=== PATIENT | female | born 1950 | race Caucasian/White ===

== ENCOUNTER 2024-10-22 19:44 | Emergency (ER) | payer MEDICARE, MEDICAID ==
[~2024-10-22] VITALS: Ht 154.9 cm; Wt 70.0 kg
[2024-10-22 20:12] VITALS: O2SAT 100
[2024-10-22] MEDS: ACETAMINOPHEN 500MG TABLET PO ONE (23:58)
[2024-10-23] VITALS: BP 125/76; PULSE 82; RESP 16; TEMP 37.16964; O2SAT 100
[2024-10-23] MEDS: IBUPROFEN 800MG TABLET PO ONE (00:28)
== END 2024-10-23 | disposition home or self-care (01) ==
LOC: ER 19:44
DX: S01.81XA Laceration without foreign body of other part of head, initial encounter (principal); E11.9 Type 2 diabetes mellitus without complications; I10 Essential (primary) hypertension; W18.30XA Fall on same level, unspecified, initial encounter; Y93.89 Activity, other specified; Y92.89 Other specified places as the place of occurrence of the external cause; Y99.8 Other external cause status
CPT/HCPCS: 99284